=== PATIENT | male | born 1940 | race Caucasian/White ===

== ENCOUNTER 2019-03-01 18:29 | Emergency (ER) | payer OTHER ==
[~2019-03-01] VITALS: Ht 177.8 cm; Wt 70.3 kg
[2019-03-01] MEDS ORDERED: NORFLEX100MG PO (23:52)
[2019-03-01] MEDS ORDERED: DICLOFENAC SODI50 MG PO (23:52)
== END 2019-03-02 00:08 | disposition home or self-care (01) ==
LOC: ER 18:29
DX: S20.222A Contusion of left back wall of thorax, initial encounter (principal); S20.221A Contusion of right back wall of thorax, initial encounter; W18.39XA Other fall on same level, initial encounter; Y93.89 Activity, other specified; Y92.520 Airport as the place of occurrence of the external cause; Y99.8 Other external cause status